=== PATIENT | male | born 1940 | race Caucasian/White ===

== ENCOUNTER 2016-11-10 14:51 | Emergency (ER) | payer MEDICARE ==
[~2016-11-10] VITALS: Ht 172.7 cm; Wt 86.0 kg
[~2016-11-10 14:51] MED LIST: BUDE100T PO; DOCU250C PO; LISI-360 PO; LORTA5 PO; METO50TA PO; PLAV75TA PO; POTA1080 PO; SIMV40TA PO; VITA50LO PO
[2016-11-10 14:53] VITALS: BP 153/65; PULSE 79; RESP 17; TEMP 98.4; O2SAT 99
--- NOTE | 2016-11-10 14:59 | PD ---
Physical Exam Date Seen by Provider: November 10, 2016 Time Seen by Provider: 14:55 Narrative 76 yo male here for evaluation of blood in urine. Started yesterday. Takes Plavix. No pain. No BM issues. No weakness. History of dementia so history obtained from . Had more episodes today. Vitals sign stable. Patient awaiting bed placement. Data Data Last Documented VS Vital Signs Date Time Temp Pulse Resp B/P Pulse Ox O2 Delivery O2 Flow Rate FiO2 11/10/16 14:53 98.4 79 17 153/65 99 MDM Medical Record Reviewed: Yes Supervised Visit with MICHAEL: Loki Roland November 10, 2016 14:59
[2016-11-10 15:57] LABS: BLOOD, URINE SMALL (NEG); COMMENT (UR) CULT NOT INDICATED; CULTURE IF INDICATED CULT NOT INDICATED; GLUCOSE,URINE NEG (NEG); HYALINE CAST, URINE 1 /lpf (RARE); KETONE, URINE NEG (NEG); MUCUS URINE FEW /lpf (OCC); NITRITE,URINE NEG (NEG); PH, URINE 5.5 (5.0-8.5); URINE COLOR YELLOW (YELLW/STRAW)
[2016-11-10 16:04] VITALS: BP 163/75; PULSE 68; RESP 16; TEMP 97.7; O2SAT 95
[2016-11-10] MEDS ORDERED: SIMV40TA PO (16:11)
[2016-11-10] MEDS ORDERED: LISI-515 PO (16:11)
[2016-11-10] MEDS ORDERED: CLOP75TA PO (16:14)
[2016-11-10] MEDS ORDERED: BUPR75TA PO (16:14)
--- NOTE | 2016-11-10 16:14 | PD ---
HPI Chief Complaint: Complaint Time Seen by Provider: 15:49 Travel History International Travel<30 days: No Contact w/Intl Traveler<30days: No Traveled to known affect area: No History of Present Illness HPI Patient is a 76-year-old male with history of stroke on Xarelto, known kidney stone who presents emergency Department with hematuria. Patient had a brief spell of left-sided back pain yesterday. States he believes his kidney stone was on the left side. The pain is since resolved. Shortly thereafter he urinated and had some blood in the urine. This went away yesterday evening and he had a repeat episode of hematuria today. He has not had any residual pain today. He has not passed any clots and has not had any difficulty urinating. No dysuria. PFSH Past Medical History Hx Anticoagulant Therapy: Yes (Plavix) Arthritis: No Asthma: No Blood Disorders: No Anxiety: Yes Heart Rhythm Problems: Yes Cancer: No Cardiovascular Problems: Yes (Stent) High Cholesterol: Yes COPD: No Cerebrovascular Accident: Yes Coronary Artery Disease: Yes Dementia: Yes Diabetes: No Diminished Hearing: No Endocrine: No Genitourinary: Yes Headaches: No Hypertension: Yes Immune Disorder: No Kidney Stones: Yes Musculoskeletal: No Neurologic: Yes (CVA 9YRS AGO/ COUPLE MINI-STROKES SINCE) Reproductive: No Respiratory: No Integumentary: Yes (ecthema ) Immunizations Current: Yes Migraines: No Myocardial Infarction: Yes (12/13/07) Seizures: No Thyroid Disease: No ?: Not Past Surgical History Abdominal Surgery: Yes (INGUINAL HERNIA REPAIR) Appendectomy: Yes Cardiac Surgery: Yes (CARDIAC STENT X1 12/19) Coronary Artery Bypass Graft: Yes Coronary Stent: Yes Genitourinary Surgery: Yes (LITHOTRIPSY) Tonsillectomy: Yes Other Surgery: Yes (abdominal hernia x 2 ) Social History Alcohol Use: No Tobacco Use: No Substance Use: No Allergies-Medications (Allergen,Severity, Reaction): Coded Allergies: Penicillin (Verified Allergy, Severe, 07/24/14) Reported Meds & Prescriptions Reported Meds & Active Scripts Active Docusate Sodium 250 Mg Cap 250 Mg PO BID 5 Days [place] 5-325 mg (Hydrocodone-Acetaminophen 5-325 mg) 5 mg/325 mg Tab 1 Tab PO Q6 PRN Reported Lisinopril 20 Mg Tab 20 Mg PO DAILY Plavix (Clopidogrel Bisulfate) 75 Mg Tab 75 Mg PO DAILY Vitamin B-12 (Cyanocobalamin) 50 Mcg [place] 0 PO DAILY Potassium Citrate ER 10 meq 1,080 Mg Tab 1,080 Mg PO DAILY Metoprolol Tartrate 50 mg (Metoprolol Tartrate) 50 Mg Tab 50 Mg PO DAILY Bupropion Hcl (Bupropion HCl) 100 Mg Tab 150 Mg PO BID Simvastatin 40 Mg Tab 40 Mg PO HS Review of Systems Except as stated in HPI: all other systems reviewed are Neg Physical Exam Narrative GENERAL: Well-appearing male in no acute distress SKIN: Focused skin assessment warm/dry. HEAD: Normocephalic. EYES: No scleral icterus. No injection or drainage. ENT: Mucous membranes pink and moist. NECK: Supple CARDIOVASCULAR: Regular rate and rhythm. RESPIRATORY: No accessory muscle use. GASTROINTESTINAL: Abdomen soft, non-tender, nondistended. No CVA tenderness GENITOURINARY: Normal external male genitalia, uncircumcised. Scant blood on the tip of the penis. MUSCULOSKELETAL: Normal gait NEUROLOGICAL: Awake and alert. Normal speech. PSYCHIATRIC: Appropriate mood and affect; insight and judgment normal. Data Data Last Documented VS Vital Signs Date Time Temp Pulse Resp B/P Pulse Ox O2 Delivery O2 Flow Rate FiO2 11/10/16 16:04 97.7 68 16 163/75 95 Room Air Orders Urinalysis - C+S If Indicated (11/10/16 15:25) Labs Laboratory Tests Test 11/10/16 15:38 Urine Color YELLOW Urine Turbidity CLEAR Urine pH 5.5 Urine Specific [place] 1.024 Urine Protein TRACE mg/dL Urine Glucose (UA) NEG mg/dL Urine Ketones NEG mg/dL Urine Occult Blood SMALL Urine Nitrite NEG Urine Bilirubin NEG Urine Urobilinogen LESS THAN 2.0 MG/DL Urine Leukocyte Esterase NEG Urine RBC 2 /hpf Urine WBC LESS THAN 1 /hpf Urine Hyaline Casts 1 /lpf Urine Mucus FEW /lpf Microscopic Urinalysis Comment CULT NOT INDICATED MDM Medical Decision Making Medical Screen Exam Complete: Yes Emergency Medical Condition: Yes Medical Record Reviewed: Yes Differential Diagnosis 76-year-old male with previous CVA, known kidney stone here with hematuria. Patient did have a brief period of flank pain yesterday on the side of his known stone, since resolved. Hematuria thereafter. I suspect the stone may have moved the patient certainly is not having any symptoms of it at this time. Differential includes UTI/pyelonephritis, bladder mass. Narrative Course Urinalysis shows scant amount of blood but no evidence of infection. Patient reassured. He does have a training representative, and was encouraged to follow-up with this provider for outpatient follow-up if the hematuria persists. Diagnosis Primary Impression: Hematuria Referrals: Mobile Developer call for appointment Additional Instructions: Continue medications as prescribed. Follow-up with kidney doctor for outpatient management as discussed. Med/Other Pt SpecificInfo: No Change to Meds Disposition: 01 DISCHARGE HOME Condition: Stable Claire Carrasco MD November 10, 2016 16:14
[2016-11-10] MEDS ORDERED: DONE10TA7 PO (16:15)
[2016-11-10] MEDS ORDERED: VITA100021 SL (16:17)
[2016-11-10] MEDS ORDERED: METH10CA2 PO (16:18)
== END 2016-11-10 16:24 | disposition home or self-care (01) ==
LOC: NEPD 14:51
DX: R31.9 Hematuria, unspecified (principal)
CPT/HCPCS: 81001; 99283